=== PATIENT | female | born 1940 | race African-American/Black ===

== ENCOUNTER → 2018-02-22 | Day surgery (SDC) | payer OTHER, BC ==
--- NOTE | 2018-02-23 10:22 | PATH ---
Surgical Pathology Report Patient Name: BRIANNA TO [facility]. Rec. #: [id number] /Age/Gender: 1940 (Age: 78) / F Account: [id number] Location: [facility] Taken: 02/22/2018 Received: 02/22/2018 Reported: 02/23/2018 Physicians: Mary Jo Smith M.D. Specimen(s) Received LEFT NIPPLE Clinical History Nonpalpable lesion Ultrasound findings: Probably benign Final Diagnosis SUB NIPPLE, LEFT, ULTRASOUND GUIDED CORE BIOPSY:BENIGN BREAST TISSUE WITH LARGE DILATED DUCTS. Electronically Signed Keysha Pineda M.D. Gross Description Received in formalin labeled "left sub nipple," are 5 purdy-yellow, cylindrical portions of fibroadipose tissue ranging from 0.2-1.0 cm in length and averaging 0.1 cm in diameter. The specimens are submitted in toto in one cassette. Total formalin fixation time: Approximately 6 hours /02/22/2018 saudi/02/22/2018
== END | disposition home or self-care (01) ==
LOC: JRADUS-SUR 11:09
PROVIDERS: ATTEND Internal Medicine
PROC: 0HBU3ZX Excision of Left Breast, Percutaneous Approach, Diagnostic (ICD-10-PCS; principal; 2018-02-22)
DX: D24.2 Benign neoplasm of left breast (principal)
CPT/HCPCS: 19083; 88305-TC; A4648

== ENCOUNTER 2022-06-16 22:31 | Emergency (ER) | payer OTHER, BC ==
[2022-06-16 22:51] VITALS: BP 181/87; PULSE 60; RESP 16; BMI 24.1
[2022-06-16] MEDS ORDERED: amLODIPine BESYLATE 5 MG TABLET (FP) PO ONE (23:40)
[2022-06-17] MEDS ORDERED: amLODIPine BESYLATE 5 MG TABLET (FP) ONE (00:07)
== END 2022-06-17 00:31 | disposition home or self-care (01) ==
LOC: JER 22:31
DX: R03.0 Elevated blood-pressure reading, without diagnosis of hypertension (principal)
CPT/HCPCS: 93005; 93010; 99283-25

== ENCOUNTER 2022-06-18 17:34 | Observation (INO) | payer OTHER, BC ==
[2022-06-18 19:14] LABS: BASO % 0.3 % (0-2.0); EOS % 1.7 % (0-4.5); HEMATOCRIT 31.9 % (32.4-45.2); HEMOGLOBIN 10.7 GM/dL (10.7-15.3); LYMPH % 24.6 % (8-40); MCH 27.8 pg (25.7-33.7); MCHC 33.6 g/dl (32.0-36.0); MEAN CELL VOLUME 82.7 fl (80-96); MEAN PLT VOLUME 7.4 fl (7.5-11.1); MONO % 7.9 % (3.8-10.2); NEUT % 65.5 % (42.8-82.8); PLATELET COUNT 265 10^3/uL (134-434); RBC 3.86 M/mm3 (3.60-5.2); RDW 15.7 % (11.6-15.6)
[2022-06-18 19:19] LABS: INR 1.15 (0.83-1.09); PROTHROMBIN TIME (PATIENT) 13.3 SEC (9.7-13.0)
[2022-06-18 19:21] LABS: ACTIVATED PTT 30.6 SECONDS (25.2-36.5)
[2022-06-18 20:31] LABS: CALCIUM 9.2 mg/dL (8.5-10.1)
[2022-06-18 20:32] LABS: ALBUMIN 3.6 g/dl (3.4-5.0)
[2022-06-18 20:33] LABS: BLOOD UREA NITROGEN 16.2 mg/dL (7-18)
[2022-06-18 20:35] LABS: CREATININE 1.1 mg/dL (0.55-1.3)
[2022-06-18 20:37] LABS: TOT PROT 6.7 g/dl (6.4-8.2)
[2022-06-18 20:38] LABS: BILIRUBIN,TOTAL 0.5 mg/dL (0.2-1)
[2022-06-18 22:08] LABS: EPI CELLS 8 /uL (0-25.1); HYALINE CASTS 2 /uL (0-3.1); URINE APPEARANCE CLEAR; URINE BACTERIA 6 /uL (0-1359); URINE BILIRUBIN NEGATIVE (NEGATIVE); URINE COLOR YELLOW; URINE GLUCOSE (UA) NEGATIVE (NEGATIVE); URINE KETONE NEGATIVE (NEGATIVE); URINE LEUK ESTERASE 2+ (NEGATIVE); URINE NITRITE NEGATIVE (NEGATIVE); URINE PROTEIN NEGATIVE (NEGATIVE); URINE RBC 3 /uL (0-23.9); URINE UROBILINOGEN 0.2 mg/dL (0.2-1.0); URINE WBC 47 /uL (0-25.8)
[2022-06-19] MEDS ORDERED: CEFTRIAXONE 1 GM/50 ML BAG ONE ×2 (06:47→09:33)
[2022-06-19] MEDS: CEFTRIAXONE 1 GM in DEXTROSE 5%-WATER - 50 ML IVPB SCH ×2 (06:58→09:41)
[2022-06-19] MEDS: INSULIN SLIDING SCALE (NOVOLOG) 1 VIAL SQ SCH ×4 (07:48→21:54)
[2022-06-19] MEDS ORDERED: ENOXAPARIN NA (PORCINE) 40 MG/0.4 ML DISP.SYRIN SQ ONE (09:33)
[2022-06-19] MEDS ORDERED: ENOXAPARIN NA (PORCINE) 40 MG/0.4 ML DISP.SYRIN SQ SCH (10:00)
[2022-06-19 14:19] VITALS: BMI 23.1
[2022-06-19] MEDS ORDERED: FLU VACC QS2022-23(6MOS UP)/PF 60 MCG/0.5 ML SYRINGE IM ONE (14:19)
[2022-06-19 20:03] VITALS: RESP 18
[2022-06-20 04:31] VITALS: BP 185/110; PULSE 78; TEMP 98
== END 2022-06-20 04:45 | disposition left against medical advice (07) ==
LOC: JER 17:34 → JERBED 19:49 → J4W 06-19 13:57
PROVIDERS: ADMIT Internal Medicine
PROC: 3E03329 Introduction of Other Anti-infective into Peripheral Vein, Percutaneous Approach (ICD-10-PCS; principal; 2022-06-18)
PROC: 3E023GC Introduction of Other Therapeutic Substance into Muscle, Percutaneous Approach (ICD-10-PCS; 2022-06-18)
PROC: 3E0234Z Introduction of Serum, Toxoid and Vaccine into Muscle, Percutaneous Approach (ICD-10-PCS; 2022-06-18)
DX: R41.82 Altered mental status, unspecified (principal); I10 Essential (primary) hypertension; E78.00 Pure hypercholesterolemia, unspecified; E11.9 Type 2 diabetes mellitus without complications; Z86.73 Personal history of transient ischemic attack (TIA), and cerebral infarction without residual deficits; Z29.8 Encounter for other specified prophylactic measures
CPT/HCPCS: 36415; 70450-TC; 70551-TC; 72125-TC; 80053; 80061; 81003; 82550; 82962; 83036; 84484; 85025; 85610; 85730; 93005; 93010; 93306-TC; 93880-TC; 96365; 96372; 99285-25; C9803-CS; G0378; Q2036; U0003; U0005